=== PATIENT | female | born 1960 | race Hispanic/Latino ===

== ENCOUNTER 2018-05-24 05:59 | Day surgery (SDC) | payer MEDICAID ==
[~2018-05-24] VITALS: Ht 162.6 cm; Wt 67.8 kg
[~2018-05-24 05:59] MED LIST: SODIUM CHLORIDE 0.9% 1000ML 1,000 ML IV ONE; TRAM50TA4 PO
[2018-05-24 06:28] VITALS: BP 115/54
[2018-05-24 08:39] VITALS: BP 109/58
[2018-05-24 08:45] VITALS: BP 114/50
[2018-05-24 08:50] VITALS: BP 119/55
[2018-05-24 08:55] VITALS: BP 115/61
== END 2018-05-24 09:24 | disposition home or self-care (01) ==
LOC: DAH 05:59 → ENDO 05:59
PROVIDERS: ATTEND Internal Medicine
DX: K57.30 Diverticulosis of large intestine without perforation or abscess without bleeding (principal); K64.0 First degree hemorrhoids; R19.4 Change in bowel habit; F41.9 Anxiety disorder, unspecified; F32.9 Major depressive disorder, single episode, unspecified; M81.0 Age-related osteoporosis without current pathological fracture; Z98.890 Other specified postprocedural states; Z79.899 Other long term (current) drug therapy; Z88.8 Allergy status to other drugs, medicaments and biological substances
CPT/HCPCS: 45378; A4606; J7030